=== PATIENT | female | born 2005 | race Caucasian/White ===

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

== ENCOUNTER → 2024-04-01 15:16 | Outpatient (BNVA) | payer SELFPAY | PROVIDERS: PCP Nurse Practitioner Family; Visit Provider Nurse Practitioner Women's Health | DX: Z30.46 Encounter for surveillance of implantable subdermal contraceptive (principal); Z30.9 Encounter for contraceptive management, unspecified | CPT/HCPCS: 81025 ==

== ENCOUNTER 2024-08-26 18:51 | Emergency (ER) | payer SELFPAY ==
--- OUTSIDE RECORDS SUMMARY | 2021-03-16 04:00 | XMS_ITS | Continuity of Care Document ---
[facility] Organization [facility] Address [address] [place] [address] [place] [address] Phone Care Team Providers Care Terminal Operations Supervisor Name Role Phone Unavailable Unavailable Unavailable Procedures Procedure Date ECHO, TT W/SPECTRAL AND COLOR DOPPLER Ja INTERMEDIATE OUTPT CONSULT ECG GLOBAL Advance Directives Directive Yes / No Effective Date File Name Resuscitation Not Answered N/A N/A Life Support Not Answered N/A N/A Intubation Not Answered N/A N/A Antibiotics Not Answered N/A N/A IV Fluid Support Not Answered N/A N/A Tube Feed Not Answered N/A N/A Other Directive N/A N/A WARNING:The information contained in this section is historical and is provided for information only and does not constitute a legal document or any assurance that the information is still accurate. Please verify the information with the cade of the legal document before using it for clinical purposes. Encounters Encounter Description Practice Location Reason(s) For Visit Diagnoses Date Provider Providers Copied on Encounter INTERMEDIATE OUTPT CONSULT [facility], [address] [place] [address], [place], [address], tel:[phone] [facility] Syncope No Information Referring Provider: ANTONELLA ROGEL, [address], [place], [address]. tel:[phone] Family History Family Member Type Diagnosis Age At Onset Problem No family history of Congeni sharlene Heart Disease Problem No family history of Cardiom yopathy - hypertrophic Problem No family history of Prematu re CAD Problem No family history of Sudden Problem No family history of Diabete s Mellitus Problem No family history of Cardiom yopathy - dilated Problem No family history of Hyperte nsion Problem No family history of Arrhyth mago Payers Payer name Insurance type Covered alliance party ID Elmer krishnamurthy(s) [facility] [id number] Social History Type Description Quantity Date Captured Comments Alcohol Use Details Unknown Caffeine Use Details Unknown Tobacco Use Status No Information Smoking Status No Information Sex Female Vital Signs Date / Time: Height Weight BMI Pulse Rate Blood Pressure Temperature Respiratory Rate Body Surface Area Head Circumference BMI percentile Pulse Ox Inhaled Ox 10:22 AM 65.00 in 51.710 kg (114.00 lbs) 19.0 0 kg/m eter (2) 22 /min 1.54 meter(2) 25 Chief Complaint And Reason For Visit No Information History Of Present Illness Encounter Date Complaint History Of Prese nt Illness No Information Instructions Date Instruction Additional Infor mation No Information Assessments Type Assessment Date No Information
--- OUTSIDE RECORDS SUMMARY | 2022-08-23 11:43 | XMS_ITS | Continuity of Care Document ---
Author Organization [facility] Address [address] [id number] [address] Phone Care Team Providers Care Plastic Boat Patcher Name Role Phone Calinosmanibehzad DDKarl, Rosendo Unavailable Unavailab le Allergies, Adverse Reactions, Alerts Substance Reaction Status Criticality No Known allergies Medications Medication Instructions Dosage Effective Dates (start - stop) Status Comments Augmentin 500 mg-125 mg tablet take 1 tablet by oral route every 12 hours 1.00 tablet - Active citalopram 10 mg tablet take 1 tablet by oral route every day 10 MG - Active Nexplanon 68 mg subdermal implant - Active chlorhexidine gluconate 0.12 % mouthwash place 15 milliliter by mouth (after meals), swish one minute then spit out as needed - Active Start on 3rd day after surgery, use salt/water first 3 days. clonazepam 1 mg tablet Take 1 (one) tablet 1 (one) hour prior to procedure. - Active hydrocodone 5 mg-acetaminophen 325 mg tablet take 1 tablet by oral route every 6 hours as needed for pain as needed 1.00 tablet - Active ibuprofen 800 mg tablet take 1 tablet by oral route 3 times every day with food as needed 800 MG - Active Anti-inflamma tory caused by Oral Surgery, Do not used more than 3000mg per day. TRAZODONE HCL (unknown strength) take 1 tablet by oral route every day at bedtime Not Available - Active Procedures Procedure Date Removal Of Impacted Tooth Partially Bony Removal Of Impacted Tooth Partially Bony Non-Intravenous Conscious Sedation Jul- Removal Of Impacted Tooth Partially Bony Removal Of Impacted Tooth Partially Bony EDR Approval Note Limited Oral Evaluation Problem Focused EDR Approval Note Advance Directives Directive Yes / No Effective Date File Name No Information Encounters Encounter Description Practice Location Reason(s) For Visit Diagnoses Date Provider Providers Copied on Encounter [facility], [id number], [id number], [place] tel:[phone] [facility] No Information 3 Keya Robbins. [address] , [place], [address], [place]. tel:[phone] [place] [address], [id number], [id number], [place] tel:[phone] [facility] No Information 3 Gideon Hernandez. [address] [place] [address], [address], [place]. tel:[phone] Referring Provider: David Meneses, [address] [place] [address], [address]. tel:[phone] [facility], [id number], [id number], [place] tel:[phone] [facility] No Information 3 Gideon Hernandez. [address] [place] [address], [address], [place]. tel:[phone] Referring Provider: David Meneses, [address] [place] [address], [address]. tel:[phone] Family History Family Member Type Diagnosis Age At Onset No Information Payers Payer name Insurance type Covered constitution party ID Elmer krishnamurthy(s) [employer] [place] [id number] Social History Type Description Quantity Date Captured Comments Sex Female Smoking Status No Information Sexual Orientation Heterosexual Gender Identity Female Chief Complaint And Reason For Visit No Information Reason For Referral Reason For Referral No Information History Of Present Illness Encounter Date Complaint History Of Prese nt Illness No Information Functional Status Date Functional Assessmen t No Information Instructions Date Instruction Additional Infor martina Lifestyle education Related to D ental Examination Assessments Type Assessment Date No Information Patient Care Teams Name Effective Dates (start - stop) Status Members No Information
[2024-08-26 18:59] VITALS: BP 98/63; PULSE 74; RESP 14; TEMP 36.8; O2SAT 98; BMI 22.4
--- OUTSIDE RECORDS SUMMARY | 2024-08-26 19:01 | XMS_ITS | Clinical Summary ---
Author Organization [facility] Address [address] [place] [address] Care Team Providers Care Roustabout Pusher Name Role Phone Yumiko Shoemaker FORMULATION TECHNICIAN Primary Care Provider [phone] Allergies No known active allergies Medications escitalopram oxalate (LEXAPRO) 5 mg tablet Take 5 mg by mouth daily. 01/31/2021 Active Active Problems No known active problems Family History Medical History Relation Name Comments Migraines Mother Other Paternal Grandmother passing out spells similar to Neetu; seizure-like activity triggered by passing out Seizures Neg Hx Stroke Neg Hx Relation Name Status Comments Mother Paternal Grandmother Social History Tobacco Use Types Packs/Day Years Used Date Smoking Tobacco: Never Assessed Comments No Sex and Gender Information Value Date Recorded Sex Assigned at Not on file Legal Sex Female 10:48 AM CDT Gender Identity Not on file Sexual Orientation Not on file Last Filed Vital Signs Vital Sign Reading Time Taken Comments Blood Pressure 108/66 03/08/2021 9:30 PM SIX PACK PACKER Pulse 61 03/08/2021 9:30 PM SIX PACK PACKER Temperature 36.6 C (97.8 F) 03/08/2021 6:33 PM SIX PACK PACKER Respiratory Rate 18 03/08/2021 9:30 PM SIX PACK PACKER Oxygen Saturation 98% 03/08/2021 9:30 PM SIX PACK PACKER Inhaled Oxygen Concentration - - Weight 49.6 kg (109 lb 5.6 oz) 03/08/2021 6:33 P M SIX PACK PACKER Height 165.1 cm (5' 5 ) 03/08/2021 6:33 PM SIX PACK PACKER Body Mass Index 18.2 03/08/2021 6:33 PM SIX PACK PACKER Plan of Treatment Health Maintenance Due Date Last Done Comments CHLAMYDIA SCREENING (ANNUAL) 11-24 YEARS 08/05/2015 HPV VACCINES (1 - 3-dose series) 08/05/2019 DTAP/TDAP/TD VACCINES (1 - Tdap) 08/05/2023 HEPATITIS B VACCINES (1 of 3 - 19+ 3-dose series) 07/25 INFLUENZA VACCINE (#1) 2024 Insurance PLAN MEDICAID MEDICAID Care Teams Roustabout Pusher Relationship Specialty Start Date End Date Yumiko Shoemaker FNP [address] [place] [address] PCP - General Nurse Practitioner Family 03/08/21
--- NOTE | 2024-08-26 19:15 | ECG_ITS ---
Unified Inbox Exelis Test Date: 2024-08-26 Pat Name: Neetu Carbone Department: Room: Gender: Female Building Stonecutter: : 2005 Requested By: Alyssa Head Order Number: [id number] Reading MD: Measurements Intervals [place] Rate: 78 P: 69 [place]: 150 QRS: 82 QRSD: 85 T: 53 QT: 388 QTc: 444 Interpretive Statements SINUS RHYTHM POSSIBLE LEFT ATRIAL ENLARGEMENT [-0.1mV P-WAVE IN V1/V2] MODERATE T-WAVE ABNORMALITY, CONSIDER ANTERIOR ISCHEMIA [-0.1+ mV T-WAVE IN V3/V4] No previous ECG available for comparison [email or web address]
--- NOTE | 2024-08-26 19:16 | CTR_ITS ---
PROCEDURE INFORMATION: Exam: CT Head Without Contrast Exam date and time: 08/26/2024 8:34 PM Age: 19 years old Clinical indication: Injury or trauma; Fall; Blunt trauma (contusions or hematomas); With loss of consciousness; Loss of consciousness for 30 minutes or less; Additional info: Fall from horse, loc, seizure TECHNIQUE: Imaging protocol: Computed tomography of the head without contrast. Radiation optimization: All CT scans at this facility use at least one of these dose optimization techniques: automated exposure control; mA and/or kV adjustment per patient size (includes targeted exams where dose is matched to clinical indication); or iterative reconstruction. COMPARISON: No relevant prior studies available. RADIATION DOSE METRICS: Total DLP (mGy-cm): 1016.5 FINDINGS: Brain: No acute infarction, hemorrhage, mass, or extra-axial fluid collection is identified. No midline shift. Cerebral ventricles: No hydrocephalus. Paranasal sinuses: Paranasal sinuses are grossly clear. Mastoid air cells: Mastoid air cells are grossly clear. Bones: Calvarium appears intact. Soft tissues: Unremarkable. CT/CT head wo con* [id number] IMPRESSION: No acute intracranial abnormality.
--- NOTE | 2024-08-26 19:16 | CTR_ITS ---
PROCEDURE INFORMATION: Exam: CT Cervical Spine Without Contrast Exam date and time: 08/26/2024 8:34 PM Age: 19 years old Clinical indication: Injury or trauma; Fall; Blunt trauma; Additional info: Fall from horse, loc, seizure TECHNIQUE: Imaging protocol: Computed tomography of the cervical spine without contrast. Radiation optimization: All CT scans at this facility use at least one of these dose optimization techniques: automated exposure control; mA and/or kV adjustment per patient size (includes targeted exams where dose is matched to clinical indication); or iterative reconstruction. COMPARISON: CR XR ribs LT mn 3V w CXR1V [id number] 12/07/2023 8:34 PM RADIATION DOSE METRICS: Total DLP (mGy-cm): 163.2 FINDINGS: Bones: No acute fracture. Normal alignment. No significant disc herniation. No severe spinal canal stenosis. No high-grade neural foraminal narrowing. Lungs: Lung apices are unremarkable. Soft tissues: Unremarkable. CT/CT cervical spin wo con* [id number] IMPRESSION: No acute cervical spine fracture.
--- NOTE | 2024-08-26 19:16 | CTR_ITS ---
PROCEDURE INFORMATION: Exam: CT Abdomen And Pelvis With Contrast Exam date and time: 08/26/2024 8:39 PM Age: 19 years old Clinical indication: Injury or trauma; Fall; Blunt; Epigastric; Additional info: Fall from horse, loc, seizure TECHNIQUE: Imaging protocol: Computed tomography of the abdomen and pelvis with contrast. Radiation optimization: All CT scans at this facility use at least one of these dose optimization techniques: automated exposure control; mA and/or kV adjustment per patient size (includes targeted exams where dose is matched to clinical indication); or iterative reconstruction. Contrast material: OMNIPAQUE 350; Contrast volume: 100 ml; Contrast route: INTRAVENOUS (IV); COMPARISON: ES surgery / GI images 08/24/2020 9:36 AM RADIATION DOSE METRICS: Total DLP (mGy-cm): 337.77 FINDINGS: Liver: No discrete liver lesions are apparent. Smooth hepatic contour. Gallbladder and biliary ducts: No gallbladder distension or inflammation. No calcified gallstones are apparent. No common bile duct abnormality is evident. Pancreas: No evidence of pancreatitis. No ductal dilation. Spleen: Spleen is within normal limits. Adrenal glands: Adrenal glands are within expected limits. Kidneys and ureters: No renal or ureteral calculi are identified. No hydronephrosis. Stomach and bowel: Small bowel is normal caliber. No obstruction. Large bowel within normal limits. No inflammatory wall thickening or abnormal bowel dilatation. Appendix: No evidence of appendicitis. Intraperitoneal space: No free air. No significant fluid collection. Vasculature: No abdominal aortic aneurysm. Lymph nodes: No pathologically enlarged lymph nodes by CT size criteria. Urinary bladder: Unremarkable as visualized. Reproductive: Unremarkable as visualized. Bones/joints: Minimally-displaced right L3 transverse process fracture and nondisplaced right L2 transverse process fracture. Soft tissues: Unremarkable. CT/CT abdomen pelvis w con* [id number] IMPRESSION: 1. Right L2 and L3 transverse process fractures. 2. No intra-abdominal or intrapelvic trauma is identified.
--- NOTE | 2024-08-26 19:17 | W.ED.FALL ---
HPI - Fall General: Chief Complaint: Fall Stated Complaint: thrown off horse blacked out was/is numb Time Seen by Provider: 08/26/24 19:08 History of Present Illness: This patient is a 19 year old presenting after she was thrown from her horse about an hour ago. She was riding in a field and then doesn't remember anything until she woke up on the ground. Her mother was in another field nearby and saw the riderless horse running. She got to the patient within a few minutes and the patient was awake - complaining that her legs were numb. Mom says that she found the patient's phone a distance away and thinks that maybe the patient got dragged after she fell off. The patient has no recollection of how she fell or what happened. She has a bad headache and has pain in the right lower back. She does not have any numbness in her legs now. She has some nausea. She was not wearing a helmet. Mom says that 10 minutes or so after the incident, the patient had a seizure where she became unresponsive and her muscles all got tense. The episode only lasted a few seconds, and when the patient woke up she was not confused. She has had similar episodes in the past and has had extensive testing for them - but no cause has been found. Sometimes they are associated with pain. Related Data Home Medications ?Medication ?Instructions ?Recorded ?Confirmed escitalopram oxalate 10 mg tablet 10 mg PO DAILY 04/01/24 04/01/24 trazodone 50 mg tablet 25 mg PO DAILY 04/01/24 04/01/24 Previous Rx's ?Medication ?Instructions ?Recorded cephalexin 500 mg capsule 500 mg PO BID #14 caps 04/01/24 hydrocodone 5 mg-acetaminophen 325 1 tab PO Q4H PRN pain #20 tabs 08/26/24 mg tablet methocarbamol 750 mg tablet 750 mg PO TID PRN muscle pain #20 08/26/24 tabs Allergies Allergy/AdvReac Type Severity Reaction Status Date / Time No Known Allergies Allergy Verified 08/26/24 19:02 [facility] ED PFSH: Medical History No pertinent past medical history neghx: htn, dm ,thyroid, dvt/pe PCP: Yumiko Shoemaker Surgical History H/O left knee surgery (~2020) Family History Denies family history of Colon cancer Ovarian cancer Prostate cancer Diabetes Heart disease Hyperlipidemia Breast cancer Hypertension Uterine cancer Thyroid disease Stroke Social History Smoking and tobacco/nicotine status: never used tobacco/nicotine Physical Exam Const: COMMON NORMALS: no acute distress, patient oriented x3, no limitations and alert GENERAL APPEARANCE: cooperative and comfortable HENMT: HEAD & SCALP: normal to inspection FACE & SINUS: normal facial exam Eye: GENERAL EYE: appearance normal, both eyes and all related structures Neck/C-Spine: COMMON NORMALS: supple, no meningeal signs and no JVD Chest: COMMONS NORMALS: normal inspection of the chest Resp: COMMON NORMALS: normal respiratory effort, No use of accessory muscles and clear to auscultation bilaterally AUSCULTATION: clear to auscultation bilaterally Cardio: COMMON NORMALS: no JVD, regular rate, regular rhythm and No murmurs present (Cardio) RATE: regular rate RHYTHM: regular rhythm GI: COMMON NORMALS: Normal to inspection, nondistended, normoactive bowel sounds present, Soft to palpation and non-tender INSPECTION: Yes normal to inspection AUSCULTATION: Yes normoactive bowel sounds PALPATION: Yes Soft to palpation Back/Pelvis: OTHER: abrasions and swelling to the right lower back and flank - tender to palpation. No bony or midline tenderness Extremity: NARRATIVE EXTREMITY EXAM: abrasions to the right upper lateral arm - swollen and tender - but no deformity and normal ROM Neuro: COMMON NORMALS: patient oriented x3, moves all extremities, no focal motor deficits and no sensory deficits noted SENSORIUM/ORIENTATION: Yes alert MENINGEAL SIGNS: Yes no meningeal signs Psych: COMMON NORMALS: mental status grossly normal, cooperative and normal affect Skin: COMMON NORMALS: no rashes or lesions noted and turgor normal GENERAL SKIN EXAM: no rashes or lesions noted and turgor normal Course Vital Signs: Vital signs: Vital Signs Temperature 98.3 F 08/26/24 18:59 Pulse Rate 80 08/26/24 20:19 Respiratory Rate 20 H 07/03/25 20:19 Blood Pressure 117/71 08/26/24 20:19 Pulse Oximetry 100 08/26/24 20:19 MDM - Fall Medical Decision Making Fall from a horse - possible that she was dragged based on the abrasions on her arm and flank. She is complaining of headache and was not wearing a helmet. No obvious head trauma on exam but CT head and cspine are indicated with the history of LOC and seizure. CT abd/pelvis ordered due to the flank trauma - currently neuro is intact in the legs - but the initial numbness was concerning. CTs show only minimally and non displaced right transverse process fractures at L2 and L3. Discussed findings with patient and family. WIll send her home with hydrocodone - which she has taken previously for knee surgery and tolerated well - and methcarbamol. She will be referred to Dr. Fisher for follow up. A work note was given. Lab Data 08/26/24 19:30 08/26/24 19:30 Radiology Impressions Abdomen/Pelvis CT 08/26/24 19:16 IMPRESSION: 1. Right L2 and L3 transverse process fractures. 2. No intra-abdominal or intrapelvic trauma is identified. Cervical Spine CT 08/26/24 19:16 IMPRESSION: No acute cervical spine fracture. Head CT 08/26/24 19:16 IMPRESSION: No acute intracranial abnormality. Lumbar Spine CT 08/26/24 19:31 IMPRESSION: Right L2 and L3 transverse process fractures, with the latter appearing mildly displaced Laboratory Results WBC 11.25 10^3/uL (4.5-13.0) 08/26/24 19:30 RBC 4.82 10^6/uL (3.85-5.65) 08/26/24 19:30 Hgb 13.80 g/dL (12.4-14.8) 08/26/24 19:30 Hct 40.3 % (36-47) 08/26/24 19:30 MCV 83.6 fl (85-98) L 08/26/24 19:30 MCH 28.6 pg (27-33) 08/26/24 19:30 MCHC 34.2 g/dL (30-55) 08/26/24 19:30 RDW 12.0 % (12.1-15.1) L 08/26/24 19:30 Plt Count 213 10^3/cmm (157-399) 08/26/24 19:30 MPV 10.6 fL (7.4-10.4) H 08/26/24 19:30 Neut % (Auto) 78.5 % 08/26/24 19:30 Lymph % (Auto) 12.7 % 08/26/24 19:30 [place] % (Auto) 6.6 % 08/26/24 19:30 Eos % (Auto) 0.8 % 08/26/24 19:30 Baso % (Auto) 0.6 % 08/26/24 19:30 Neut # (Auto) 8.83 10^3/uL (1.8-8.0) H 08/26/24 19:30 Lymph # (Auto) 1.4 10^3/uL (1.5-6.5) L 08/26/24 19:30 [place] # (Auto) 0.7 10^3/uL (0.2-0.9) 08/26/24 19:30 Eos # (Auto) 0.1 10^3/uL (0.0-0.8) 08/26/24 19:30 Baso # (Auto) 0.1 10^3/uL (0.0-0.1) 08/26/24 19: Nucleated RBC % (auto) 0 % 08/26/24: Nucleated RBCs # 0.0 /100WBC 08/26/24 19:30 Sodium 138 mmol/L (136-145) 08/26/24 19:30 Potassium 3.8 mmol/L (3.5-5.1) 08/26/24 19: Chloride 104 mmol/L (98-107) 08/26/24 19:30 Carbon Dioxide 20 mmol/L (22-29) L 08/26/24 19:30 Anion Gap 17.8 (5-19) 08/26/24 19:30 BUN 9 mg/dL (6-20) 08/26/24 19:30 Creatinine 0.6 mg/dL (0.5-0.9) 08/26/24 19:30 GFR Calculation 127.5 mL/min (90-130) 08/26/24: Glucose 96 mg/dL (65-115) 08/26/24:30 Calculated Osmolality 285 mOsm/kg (285-295) 08/26/24 19:30 Calcium 9.8 mg/dL (8.5-10.5) 08/26/24 19:30 Total Bilirubin 0.6 mg/dL (0.15-1.2) 08/26/24 19:30 AST 22 U/L (0-32) 08/26/24 19:30 ALT 16 U/L (0-33) 08/26/24 19:30 Alkaline Phosphatase 109 U/L (35-105) H 08/26/24 19:30 Total Protein 7.3 g/dL (6.6-8.7) 08/26/24 19: Albumin 4.8 g/dL (3.5-5.2) 08/26/24 19: Globulin 2.5 g/dL (1.3-4.6) 08/26/24 19:30 HCG, Qual Negative (Negative) 08/26/24 20:12 Ser , Semi-Qnt < 1.00 mIU/mL 08/26/24 19:30 Urine Color Yellow (Yellow) 08/26/24 20:12 Urine Appearance Clear (CLEAR) 08/26/24 20:12 Urine pH 6.5 (5-7) 08/26/24 20:12 Ur Specific [place] 1.009 (1.005-1.030) 08/26/24 20:12 Urine Protein Negative (Negative) 08/26/24 20:12 Urine Glucose (UA) Negative (Normal) 08/26/24 20:12 Urine Ketones Negative (Negative) 08/26/24 20:12 Urine Blood Negative (Negative) 08/26/24 20:12 Urine Nitrate Negative (Negative) 08/26/24 20:12 Urine Bilirubin Negative (Negative) 08/26/24 20:12 Urine Urobilinogen 1.0 mg/dL (Negative) 08/26/24 20:12 Ur Leukocyte Esterase Negative (Negative) 08/26/24 20:12 Urine RBC 0-2 /hpf (0-2) 08/26/24 20:12 Urine WBC 0-5 /hpf (0-5) 08/26/24 20:12 Ur Squamous Epith Cells 0-5 /hpf (0-5) 08/26/24 20:12 Amorphous Sediment Not Reportable 08/26/24 20:12 Urine Bacteria None seen /hpf (NONE) 08/26/24 20:12 Hyaline Casts 1.65 /lpf 08/26/24 20:12 All radiology interpretation(s) finalized by discharge Discharge Plan Discharge Patient Disposition: Home Clinical Impression: Animal-rider injured by fall from or being thrown from horse in noncollision accident, initial encounter, Syncope, Concussion with loss of consciousness, Closed fracture of transverse process of lumbar vertebra Condition: Stable Prescriptions: New hydrocodone-acetaminophen 5-325 mg tablet 1 tab PO Q4H PRN (Reason: pain) Qty: 20 0RF methocarbamol 750 mg tablet 750 mg PO TID PRN (Reason: muscle pain) Qty: 20 0RF No Action escitalopram oxalate 10 mg tablet 10 mg PO DAILY trazodone 50 mg tablet 25 mg PO DAILY cephalexin 500 mg capsule 500 mg PO BID Qty: 14 0RF Discharge Orders: Discharge ED (Routine); Ordered 08/26/24 Ordered By: Alyssa Caldwell Referrals: Harjeet Fisher DO [Physician, Orthopedics] - 4-7 days Referral Note: L2 and L3 transverse process fractures Yumiko Shoemaker FNP [Primary Care Provider, Unknown] Patient Instructions: Opioid Safety, Pain Management, Patient Portal & [facility] Instructions Stand Alone Forms: Work/School Release Print Language: Ethiopian Coding Level of Care Code ED Project Drilling Engineer for Mariah Gutierrez
--- NOTE | 2024-08-26 19:31 | CTR_ITS ---
PROCEDURE INFORMATION: Exam: CT Lumbar Spine Without Contrast Exam date and time: 08/26/2024 8:39 PM Age: 19 years old Clinical indication: Injury or trauma; Fall; Blunt trauma (contusions or hematomas); Additional info: Fall from horse, legs numb TECHNIQUE: Imaging protocol: Computed tomography of the lumbar spine without contrast. Radiation optimization: All CT scans at this facility use at least one of these dose optimization techniques: automated exposure control; mA and/or kV adjustment per patient size (includes targeted exams where dose is matched to clinical indication); or iterative reconstruction. COMPARISON: CT abdomen pelvis w con* [id number] 08/26/2024 8:39 PM RADIATION DOSE METRICS: Total DLP (mGy-cm): 0.01 FINDINGS: Bones/joints: Normal alignment and curvature. No vertebral body fracture, however there is mildly displaced right L3 transverse process fracture and nondisplaced right L2 transverse process fracture. No significant disc bulge or herniation. No severe spinal canal stenosis. No significant neural foraminal narrowing. Soft tissues: Unremarkable. CT/CT lumbar spine recon [id number] IMPRESSION: Right L2 and L3 transverse process fractures, with the latter appearing mildly displaced
[2024-08-26 20:00] LABS: Hematocrit 40.3 % (36-47); Hemoglobin 13.80 g/dL (12.4-14.8); Mean Corpuscular HGB Conc 34.2 g/dL (30-55); Mean Corpuscular Hemoglobin 28.6 pg (27-33); Mean Corpuscular Volume 83.6 fl (85-98); Nucleated Red Blood Cells % 0 %; Platelet Count 213 10^3/cmm (157-399); Red Blood Count 4.82 10^6/uL (3.85-5.65); White Blood Count 11.25 10^3/uL (4.5-13.0)
[2024-08-26 20:19] VITALS: BP 117/71; PULSE 80; RESP 20; O2SAT 100
[2024-08-26 20:24] LABS: Glucose Urine UA Negative (Normal); Nitrate Urine Negative (Negative); Specific Gravity, Urine 1.009 (1.005-1.030)
[2024-08-26 20:26] LABS: Add Urine Microscopic? YES
[2024-08-26 20:37] LABS: Alanine Aminotransferase 16 U/L (0-33); Albumin Level 4.8 g/dL (3.5-5.2); Alkaline Phosphatase 109 U/L (35-105); Anion Gap 17.8 (5-19); Aspartate Amino Transferase 22 U/L (0-32); Blood Urea Nitrogen 9 mg/dL (6-20); Calcium 9.8 mg/dL (8.5-10.5); Carbon Dioxide 20 mmol/L (22-29); Chloride 104 mmol/L (98-107); Creatinine Clr Calc Pharmacy 138.5831; Globulin 2.5 g/dL (1.3-4.6); Glucose 96 mg/dL (65-115); Osmolality Calculated 285 mOsm/kg (285-295); Potassium 3.8 mmol/L (3.5-5.1); Sodium 138 mmol/L (136-145); Total Protein 7.3 g/dL (6.6-8.7)
[2024-08-26 20:38] LABS: HCG Qualitative Urine. Negative (Negative)
[2024-08-26 21:43] VITALS: BP 113/56; PULSE 88; RESP 18; O2SAT 97
== END 2024-08-26 21:44 | disposition home or self-care (01) ==
PROVIDERS: Emergency Provider Emergency Medicine; PCP Nurse Practitioner Family
DX: R55 Syncope and collapse (principal); S06.0X9A Concussion with loss of consciousness of unspecified duration, initial encounter; S32.029A Unspecified fracture of second lumbar vertebra, initial encounter for closed fracture; S32.039A Unspecified fracture of third lumbar vertebra, initial encounter for closed fracture; V80.010A Animal-rider injured by fall from or being thrown from horse in noncollision accident, initial encounter
CPT/HCPCS: 36415; 70450; 72125; 74177; 80053; 81001; 81025; 84702; 85025; 93005; 93010; 96360; 99284; J7120; J9999

== ENCOUNTER → 2024-09-02 12:50 | Outpatient (BNVA) | payer SELFPAY | PROVIDERS: PCP Nurse Practitioner Family; Visit Provider Orthopaedic Surgery | DX: S32.028A Other fracture of second lumbar vertebra, initial encounter for closed fracture (principal); S32.038A Other fracture of third lumbar vertebra, initial encounter for closed fracture; V80.010A Animal-rider injured by fall from or being thrown from horse in noncollision accident, initial encounter | CPT/HCPCS: 72100 ==

== ENCOUNTER → 2024-09-28 13:51 | Outpatient (BNVA) | payer SELFPAY | PROVIDERS: PCP Nurse Practitioner Family; Visit Provider Nurse Practitioner Women's Health | DX: R61 Generalized hyperhidrosis (principal) | CPT/HCPCS: 82306; 82607; 82728; 82746; 83036; 83540; 84439; 84443; 84481 ==